=== PATIENT | female | born 1985 | race Caucasian/White ===

== ENCOUNTER 2023-11-28 19:02 | Emergency (ER) | payer OTHER, SELFPAY ==
[2023-11-28 19:06] VITALS: BP 149/92
--- NOTE | 2023-11-28 20:11 | ED.GENMED ---
History of Present Illness
<Ariela No PA-C - Last Filed: 11/28/23 20:54>
General
Chief Complaint: Head Injury
Source: patient
Exam Limitations: none
Time Seen by Provider: 11/28/23 19:26
Nursing documentation reviewed up to this point in time: agreed with
Travel History
Have you had any contact with someone who has COVID-19?: No
Do you have any symptoms of coronavirus? Fever > 100 degrees, chills, cough, shortness of breath, sore throat, loss of taste or smell, muscle aches, or headache?: No
History of Present Illness
History of Present Illness:
Patient is a 37-year-old otherwise healthy female presenting for evaluation of head injury that occurred today around 11:30 AM. She states that she was at work working on drilling a large metal cylinder when the cap of the metal cylinder popped up
striking her in the forehead. The piece that hit her was solid metal weighing about a pound. She does endorse a brief moment following the impact that she does not remember entirely-maybe lasting a few seconds. There was no loss of consciousness
She had mild nausea which resolved. She is still endorsing headache in the frontal and occipital scalp, some dizziness, some blurry vision. No chest pain, shortness of breath, difficulty walking, weakness, numbness. She took 2 Excedrin migraine
about 2 hours ago for headache with very minimal improvement.
No history of head injuries in the past. Her LMP ended yesterday and she has had a tubal ligation.
Past History
<Ariela No PA-C - Last Filed: 11/28/23 20:54>
Past History
ED Past Medical History: None
ED Past Surgical History: Gynecological and Orthopedic
Social History
Tobacco: Non-smoker
Alcohol: None
Drug: None
Living: with family
Employment: Employed
Phy Exam
<Ariela No PA-C - Last Filed: 11/28/23 20:54>
Physical Exam
Physical Exam:
General: Well appearing and non-toxic, vital signs reviewed- patient afebrile
HEENT: Atraumatic, normocephalic; contusion noted to frontal scalp; pupils reactive to light bilaterally, extraocular muscles intact, no tenderness surrounding orbits, protecting airway
Neck: appears supple, no cervical spine tenderness
CV: Regular rate and rhythm, heart sounds normal, no evidence of cyanosis
Resp: No evidence of respiratory distress, lungs clear, no accessory muscle use
Abd: Soft, nontender, non-distended
Extremities: No deformities, no evidence of cyanosis or edema
Neuro: alert and oriented to person place time, speech normal, no focal motor deficits, no focal neurologic deficits; normal finger-nose, strength 5 out of 5 in upper and lower extremities, sensation equal and intact in all extremities
Psych: Normal affect
Skin: Intact, no rash
Course
<Ariela No PA-C - Last Filed: 11/28/23 20:54>
Vital Signs
Initial and Last Documented VS:
Initial Vital Signs
Temp Pulse Resp BP Pulse Ox
98 F 68 16 149/92 99
11/28/23 19:06 11/28/23 19:06 11/28/23 19:06 11/28/23 19:06 11/28/23 19:06
Last Documented Vital Signs
Temp Pulse Resp BP Pulse Ox
98 F 68 16 149/92 99
11/28/23 19:06 11/28/23 19:06 11/28/23 19:06 11/28/23 19:06 11/28/23 19:06
Keltonlt;Aidan Flores DO - Last Filed: 11/28/23 20:43>
Vital Signs
Initial and Last Documented VS:
Initial Vital Signs
Temp Pulse Resp BP Pulse Ox
98 F 68 16 149/92 99
11/28/23 19:06 11/28/23 19:06 11/28/23 19:06 11/28/23 19:06 11/28/23 19:06
Last Documented Vital Signs
Temp Pulse Resp BP Pulse Ox
98 F 68 16 149/92 99
11/28/23 19:06 11/28/23 19:06 11/28/23 19:06 11/28/23 19:06 11/28/23 19:06
<Ariela No PA-C - Last Filed: 11/28/23 20:54>
MDM/Problems Addressed
Differential Diagnosis Includes:
Contusion, concussion, intracerebral hemorrhage
MDM/Problems Addressed:
Patient is a 37-year-old female, otherwise healthy presenting for evaluation of head injury sustained earlier today while at work around 11:30 AM. She was hit with a heavy metal On frontal scalp. There was no loss of consciousness but she does
endorse a brief period following the incident but she does not clearly remember. She is endorsing frontal/occipital headache, mild dizziness, some blurry vision. No vomiting, difficulty ambulating, or weakness. Patient is hemodynamically stable.
She is neurologically intact. There is a contusion on frontal scalp with no laceration. Suspect this is likely a concussion. Being that majority of symptoms have resolved with the exception of headache, Suspicion for intracranial hemorrhage very
low. Will not obtain CT scan at this time. .
Patient is stable for discharge with close return precautions, supportive care. Patient is comfortable with this plan. All questions answered.
Chronic conditions affecting care:
N/A
Acute Exacerbation and/or Progression of Chronic Illness:
Concussion
<Ariela No PA-C - Last Filed: 11/28/23 20:54>
*Pulse Oximetry
Patient hypoxic: no
*Stuffer Interpretation
Rate: Stuffer- N/A
*Critical Care Note
Total Time (30-74mins, 75-104mins- exclusive of procedures): Not Applicable
ED Attending Note
<Ariela No PA-C - Last Filed: 11/28/23 20:54>
-
Portions of this chart may have been created with voice recognition software.� Occasional wrong word or��sound alike� substitutions may have occurred due to the inherent limitations of voice recognition software.
<Aidan HariVenancio Flores DO - Last Filed: 11/28/23 20:43>
ED Attending Note
Patient seen and examined by attending physician: Yes
I performed the substantive portion of visit, reviewed & personally made and approve the management plan that is documented in note by myself or NILE.: Yes
ED Attending Note:
I agree with Linda's note
Patient presents for evaluation after suffering a head injury earlier today. Patient was at work using a wire wheel when the object she was brushing with the wheel came loose and struck her in the forehead. She did not lose consciousness. She was
sitting on a stool and did not fall off the stool. She felt foggy for a bit, had some nausea. Currently she feels much better than she did at the time. She still feels a bit foggy. No nausea or vomiting at this time.
General: Awake, Alert, Oriented X3. No acute distress.
Vitals: unremarkable
Head: Atraumatic
Eyes: Pupils equal, EOMI
Throat: Airway intact, no exudates
Neck: Trachea midline
Lungs: Clear and equal b/l
Heart: Regular rate, no murmurs
Abd: Soft, Nontender, No pulsatile mass
Rectal:
Neuro: Cranial nerves intact, muscle strength equal bilaterally, cerebellar exam normal
Skin: Warm, dry, no rash
Extremities: pulses equal b/l, no edema
Patient is a normal neurologic exam at this time. My suspicion for intracranial hemorrhage which would require surgical intervention is essentially 0. Symptoms most consistent with a concussion. Patient stable for discharge and concussion
management at home
Discharge Plan
Departure
Patient Disposition: Home (Routine Discharge)
Date of Disposition: 11/28/23
Time of Disposition: 20:43
Patient with high blood pressure during this ER visit?: Yes
Condition: Good
Covid-19: Not Applicable
Discharge Problem:
Concussion
Instructions: Concussion, Adult (DC), BLOOD PRESSURE
Prescriptions:
No Action
citalopram 20 MG tablet
20 mg PO DAILY
omeprazole 40 mg Capsule,Delayed Release(Dr/Ec)
40 mg PO DAILY
Referrals:
Katie Cordon, [Family Provider] -
Stand Alone Forms: Return to Work
Activity Restrictions/Additional Instructions:
- Return to the emergency department with any severe headache, intractable vomiting, vision changes, persistent dizziness, confusion, altered mental status, chest pain, shortness of breath, significant worsening in current symptoms, or any other
concerns
- You can take Tylenol as needed for pain
-Follow-up with primary care for further evaluation/treatment.
Interventions
Interventions:
*Risk Screen - Suicide Last Done: 11/28/23 19:06
*Neglect/Abuse Screening Last Done: 11/28/23 19:06
ED- Fall Risk Assessment Last Done: 11/28/23 19:06
*ED COVID-19 Vaccine History Last Done: 11/28/23 19:06
*Nursing Disposition Last Done: 11/28/23 20:53
ED- Neurological Assessment Last Done: 11/28/23 20:15
== END 2023-11-28 20:54 | disposition home or self-care (01) ==
LOC: EMR 19:02
PROVIDERS: EMERGENCY PHYSICIAN Emergency Medicine; FAMILY PHYSICIAN Family Medicine
DX: S06.0XAA Concussion with loss of consciousness status unknown, initial encounter (principal); W22.8XXA Striking against or struck by other objects, initial encounter; Y99.0 Civilian activity done for income or pay
CPT/HCPCS: 99282

== ENCOUNTER 2024-02-03 18:01 | Emergency (ER) | payer OTHER, SELFPAY ==
[2024-02-03 18:19] VITALS: BP 117/77
--- NOTE | 2024-02-03 19:23 | ED.GENMED ---
History of Present Illness
General
Chief Complaint: Head Injury
Source: patient
Time Seen by Provider: 02/03/24 19:07
Travel History
Have you had any contact with someone who has COVID-19?: No
Do you have any symptoms of coronavirus? Fever > 100 degrees, chills, cough, shortness of breath, sore throat, loss of taste or smell, muscle aches, or headache?: No
History of Present Illness
History of Present Illness:
This patient is a 38-year-old female who was at work, using a wrench, when it accidentally slipped backwards and hit her on the left forehead area. She put her head on and continued working throughout the day. However, she wanted to get evaluated
after work which prompted her visit here. She states that the hematoma that developed is improving and getting smaller. She has a very minimal headache. When this happened, she did not fall to the ground or lose consciousness. She denies
associated double vision, blurry vision, eye pain, photophobia, neck pain, numbness, tingling, focal weakness, vomiting, or any other complaints.
Past History
Past History
ED Past Medical History: GERD and Psychiatric
ED Past Surgical History: Gynecological and Orthopedic
Social History
Tobacco: Former smoker
Alcohol: Occasional
Drug: Marijuana
Living: with family
Employment: Employed
Phy Exam
Physical Exam
Physical Exam:
GENERAL: Alert , in no apparent distress
EYE: pupils equal and reactive, eomI, no photophobia, no conj injx, no nystagmus
NECK: Supple, no significant adenopathy, no midline ttp.
ENT: o/p clr, mmm, no jasso, no raccoon.
CARDIAC: Regular rate and rhythm .
LUNGS: Clear breath sounds bilaterally, no acute respiratory distress, no wheezes/rales/rhonchi
ABDOMEN: Soft, without focal tenderness, no r/g, no cvat
NEUROLOGICAL: Alert and oriented, no focal neuro deficits, motor 5/5, sens intact, f to n nl, cn 2-12 intact
SKIN: Warm and dry, skin intact.
MUSCULOSKELETAL: No edema, well perfused.
PSYCH: Normal and appropriate interaction.
Course
Vital Signs
Initial and Last Documented VS:
Initial Vital Signs
Temp Pulse Resp BP Pulse Ox
98.0 F 69 16 117/77 98
02/03/24 18:19 02/03/24 18:19 02/03/24 18:19 02/03/24 18:19 02/03/24 18:19
Last Documented Vital Signs
Temp Pulse Resp BP Pulse Ox
98.0 F 69 16 117/77 98
02/03/24 18:19 02/03/24 18:19 02/03/24 18:19 02/03/24 18:19 02/03/24 18:19
*Critical Care Note
Total Time (30-74mins, 75-104mins- exclusive of procedures): Not Applicable
Update Note
Update Note:
Patient presents to the Emergency Department with ___forehead hematoma
Number and Complexity of Problems Addressed at the Encounter
� Chronic conditions affecting care:
� Acute Exacerbation and/or Progression of Chronic Illness:
� Differential Diagnosis includes: But not limited to intracranial injury, superficial contusion, etc.
Amount and/or Complexity of Data to be Reviewed and Analyzed
� I performed an independent evaluation of and my interpretation is:
EKG:
CT:
Xrays:
Laboratory Studies:
Other:
� Review of other/old records reveals:
� Clinical information was obtained by an independent historian:
� Prescriptions/Medications Considered but not given:
� Further testing considered but not performed:
Risk of Complications and/or Morbidity or Mortality of Patient Management
� Social determinants of health affecting care:
� Discussion with other providers (PCP, Hospitalists, Consultants, etc):
� Escalation of care including admission/observation vs risk of discharge considered: Examination here and mechanism of action not suggestive of more serious illness such as intracranial injury, retrobulbar hematoma, etc.
Discussed with patient expectations, management, importance of follow-up, and reasons to return the emergency department. She is well-appearing, nontoxic, without focal findings with the exception of a hematoma on thorough exam here
ED Attending Note
-
Portions of this chart may have been created with voice recognition software.� Occasional wrong word or��sound alike� substitutions may have occurred due to the inherent limitations of voice recognition software.
Discharge Plan
Departure
Patient Disposition: Home (Routine Discharge)
Date of Disposition: 02/03/24
Time of Disposition: 19:24
Patient with high blood pressure during this ER visit?: No
Condition: Good
Discharge Problem:
Closed head injury, Hematoma
Instructions: Contusion (DC), Minor Head Injury (DC)
Prescriptions:
No Action
citalopram 20 MG tablet
20 mg PO DAILY
omeprazole 40 mg Capsule,Delayed Release(Dr/Ec)
40 mg PO DAILY
Activity Restrictions/Additional Instructions:
IF YOU DEVELOP DOUBLE VISION/BLURRY VISION, NECK PAIN, REPEATED VOMITING, DIZZINESS, NUMBNESS, WEAKNESS, TROUBLE WALKING, CHANGE IN SPEECH OR OTHER WORRISOME SIGNS, GO TO THE ER IMMEDIATELY!
Interventions
Interventions:
*ED COVID-19 Vaccine History Last Done: 02/03/24 18:19
ED- Neurological Assessment Last Done: 02/03/24 19:11
ED-Skin Assessment Last Done: 02/03/24 19:11
Discharge Date and Time
Print Language: [place]
== END 2024-02-03 19:40 | disposition home or self-care (01) ==
LOC: EMR 18:01
PROVIDERS: EMERGENCY PHYSICIAN Emergency Medicine; FAMILY PHYSICIAN Nurse Practitioner Family
DX: S09.90XA Unspecified injury of head, initial encounter (principal); S00.83XA Contusion of other part of head, initial encounter; W22.8XXA Striking against or struck by other objects, initial encounter; Y99.0 Civilian activity done for income or pay; Z87.891 Personal history of nicotine dependence
CPT/HCPCS: 99283